=== PATIENT | female | born 1985 | race African-American/Black ===

== ENCOUNTER 2019-08-03 06:40 | Inpatient (IN) | payer OTHER ==
[~2019-08-03] VITALS: Ht 157.5 cm; Wt 85.9 kg
[2019-08-03] VITALS (42 sets, daily range): BP systolic 116–170; BP diastolic 67–104; PULSE 70–133; TEMP 97.4–98.8
--- NOTE | 2019-08-03 06:35 | NUR ---
Patient arrives ambulatory with spouse with complaints of possible SROM at 0315 this morning. Patient reports occasional contractions every 15-20 minutes, denies vaginal bleeding, and reports normal movement. Patient changes into gown, EFM explained and placed. VS obtained. 0645- Amniotrace performed and noted inconclusive. Moderate amount of mucousy discharge noted on exam. SVE 3-4/80/-1. Second Amniotrace performed off of exam glove, also inconclusive. Patient repositioned WL and updated on plan of care. 0650- Dr. Zavala notified. Reviewed patient history, presenting complaint and assessment. Notified of inconclusive Amniotrace results x2, SVE, FHR strip and contraction pattern. Prosper noting frequent contractions and patient states they are more uncomfortable and frequent than at home. GBS positive status. Orders to monitor for 20 minute strip then allow patient to ambulate with pad on. Reswab pad when able and update physician.
[2019-08-03] MEDS ORDERED: PRENATAL (07:25)
[2019-08-03] MEDS ORDERED: OSCAL 500 TAB500 MG PO (07:25)
[2019-08-03] MEDS ORDERED: TYLENOL 325MG325 MG PO (07:25)
--- NOTE | 2019-08-03 07:25 | NUR ---
Patient taken off EFM to ambulate in hallway with peripad on per orders.
--- NOTE | 2019-08-03 07:46 | NUR ---
Patient back on EFM after ambulating in hallway. Breathing through contractions and reports they are much stronger. Amniotrace completed again, inconclusive. SVE /0 with vertex well applied to cervix. Small gush of fluid noted with exam. 0750- See physician notification. Patient updated on admit status. 0815- IV started, labs obtained. FRANCIE and Miguel infusing, see EMAR. Consents explained and signed. Patient denies questions.
--- NOTE | 2019-08-03 08:20 | NUR ---
Difficulty tracing contractions via toco monitor. [place] cord switched out, RN at bedside palpating abdomen. Contractions noted every 3.5-4 minutes apart with good resting tone. 0850- New toco monitor applied, tracing well.
[2019-08-03 08:44] LABS: COLLECTION METHOD CLEAN CATCH
[2019-08-03 08:55] LABS: BASO % 0.1 % (0.0-2.0); EOS % 0.3 % (0-4.0); GRAN # 7.1 (1.4-6.5); GRAN % 78.7 % (42.2-75.2); HEMATOCRIT 43.3 % (37.0-47.0); HEMOGLOBIN 14.4 g/dl (12.5-16.0); LYMPH # 1.3 (1.2-3.4); MEAN CELL VOLUME 91 fl (80.0-100.0); MEAN CORPUSCULAR HEMOGLOBIN 30 pg (27.0-31.0); MEAN CORPUSCULAR HGB CONC 33 g/dl (33.0-37.0); MEAN PLATELET VOLUME 9.8 fl (7.4-10.4); MONO # 0.6 (0.1-0.6); MONO % 6.6 % (1.7-9.3); PLATELET COUNT 198 K/mm3 (130-400); RED BLOOD COUNT 4.74 M/mm3 (4.10-5.30); REDCELL DISTRIBUTION WIDTH-CV 13.3 % (11.5-14.5)
[2019-08-03 08:57] LABS: MUCOUS Present /lpf; PH 7 (5-8); SQUAMOUS EPITHELIAL 0-2 /hpf; URINE APPEARANCE Clear; URINE BACTERIA None Seen /hpf; URINE BILIRUBIN Negative (NEGATIVE); URINE BLOOD Negative (NEGATIVE); URINE COLOR Yellow; URINE GLUCOSE Negative (NEGATIVE); URINE KETONE Negative (NEGATIVE); URINE LEUKOCYTE ESTERASE Negative (NEGATIVE); URINE NITRATE Negative (NEGATIVE); URINE PROTEIN(semi-quant) Negative (NEGATIVE); URINE RBC 0-2 /hpf; URINE UROBILINOGEN Negative (NEGATIVE); URINE WBC 0-2 /hpf
[2019-08-03 09:01] LABS: ALBUMIN 4.2 gm/dL (3.5-5.0); BILIRUBIN,TOTAL 0.3 mg/dL (0.0-1.0); CALCIUM 9.7 mg/dL (8.4-10.2); CREATININE, serum 0.67 (0.52-1.25); POTASSIUM 4.1 mmol/L (3.4-5.0); TOTAL PROTEIN 8.2 gm/dL (6.4-8.2)
--- NOTE | 2019-08-03 10:43 | NUR ---
Dr. Zavala on unit, reviews FHR strip and updated on patient.
--- NOTE | 2019-08-03 11:05 | NUR ---
at bedside, reviews FHR strip. SVE per provider . Orders to begin Pitocin augmenation to increase frequency of contractions. Pitocin administration reviewed with patient, patient agrees and denies questions. 1110- Pitocin started 2 mU per protocol and order. Patient comfortable with epidural.
--- NOTE | 2019-08-03 12:30 | NUR ---
1230- FHR noted at 105 bpm. Patient currently in LL position, LR bolus infusing. 1235- Pitocin discontinued at this time. FHr remains in 95-105 bpm range. Oxygen via simple mask at 10L. Patient repsitioned RL, then back to LL. 1245- SVE 9100/0. 1248- Dr. Zavala notified and requested to view strip from office. Updated on SVE. Physician reviews strip, 105 bpm baseline determined. Orders to continue monitoring patient at this time and update when SVE is 10cm. Patient updated on plan of care. Comfortable with epidural.
--- NOTE | 2019-08-03 13:30 | NUR ---
SVE AL/0. Patient repositioned sitting upright in bed to promote descent. Comfortable with epidural.
--- NOTE | 2019-08-03 15:20 | NUR ---
1520- SVE 1. Dr. Zavala notified, see physician notification. Carranza catheter removed prior to pushing. Patient coached on pushing and reports urge to push with contractions. 1537- Patient begins pushing with contractions with RN at bedside.
--- NOTE | 2019-08-03 17:30 | NUR ---
Dr. Zavala at bedside. Reviews FHR strip and pushing efforts. Orders to start Pitocin at 2 mU. Patient continues pushing with contractions with physician at bedside.
--- NOTE | 2019-08-03 20:30 | NUR ---
IV to INT. Epidural catheter dc'd. Up to bathroom with steady gait. Voids good amount, performs own pericare after instruction, clean gown on. Ambulates to room with steady gait.
[2019-08-04] VITALS: BP 126/73; PULSE 93; TEMP 98.3
[2019-08-04 04:00] VITALS: BP 131/80; PULSE 88; TEMP 98.7
[2019-08-04 08:31] VITALS: BP 140/79; PULSE 71; TEMP 98.5
--- NOTE | 2019-08-04 09:09 | NUR ---
Initial visit attempt; Physician and nurse with patient. Powder Truck Driver left card of congratulations for the of her son and information regarding the availability of spiritual care at [facility].
[2019-08-04 12:52] VITALS: BP 138/84; PULSE 83; TEMP 97.9
[2019-08-04 16:49] VITALS: BP 132/82; PULSE 74; TEMP 98.2
[2019-08-04 21:19] VITALS: BP 137/90; PULSE 77; TEMP 98.1
[2019-08-05 09:30] VITALS: BP 128/85; PULSE 83; TEMP 97.6
[2019-08-05] MEDS ORDERED: IBU800 M1 PO (09:30)
== END 2019-08-05 15:40 | disposition home or self-care (01) | DRG 807 ==
LOC: LDRO 06:40 → LDR 08:54 → OB 08:54
PROVIDERS: Student in an Organized Health Care Education/Training Program; ADMIT Obstetrics & Gynecology
PROC: 10E0XZZ Delivery of Products of Conception, External Approach (ICD-10-PCS; principal; 2019-08-03)
PROC: 0KQM0ZZ Repair Perineum Muscle, Open Approach (ICD-10-PCS; 2019-08-03)
DX: O99.824 Streptococcus B carrier state complicating childbirth (principal); Z37.0 Single live birth; O99.344 Other mental disorders complicating childbirth; Z3A.40 40 weeks gestation of pregnancy; O48.0 Post-term pregnancy; O99.354 Diseases of the nervous system complicating childbirth; G43.909 Migraine, unspecified, not intractable, without status migrainosus; F41.9 Anxiety disorder, unspecified; F32.9 Major depressive disorder, single episode, unspecified; O69.89X0 Labor and delivery complicated by other cord complications, not applicable or unspecified; O70.1 Second degree perineal laceration during delivery; Z23 Encounter for immunization
CPT/HCPCS: J2540; J2590; J7120

== ENCOUNTER → 2019-08-10 | Outpatient (CLI) | payer OTHER ==
[~2019-08-10] MED LIST: IBU800 M1 PO; OSCAL 500 TAB500 MG PO; PRENATAL; TYLENOL 325MG325 MG PO
--- NOTE | 2019-08-10 13:31 | NUR ---
Pt, Ileana Chávez, presents to walk in clinic with one week old baby boy, Vasquez Chávez, and her mother to evaluate and weight. Vasquez was born on [birth year] and weighed 6#8.1oz (2950gms). He nursed with a nipple shield while in the hospital. Discharge weight was 6# 7oz (2915 gms). Pt reports Vasquez eats every 2-3 hours, for about 15 on first breast and 5 on second breast. He has qs voids and stools. Recently he has has a little spit up after feedings. Pt reports feeling her milk come in an expected time frame. Today Vasquez weighes 6#11.3oz (3042 gms). He latches to the left breast with the nipple shield. He needs stimulation but seems to nurse okay on the first breast, and is more active on the second breast. After nursing Vasquez has a total weight gain of 2.8oz (80 gms). Small amount of spit up noted as he was being put in the car seat. POC: Breastfeed ad jackeline. F/U: Tomorrow with Dr. Irizarry for well baby exam. Questions invited and answered.
== END ==
LOC: OLC 13:06
DX: Z39.1 Encounter for care and examination of lactating mother (principal); Z71.89 Other specified counseling

== ENCOUNTER 2021-10-09 09:00 | Inpatient (IN) | payer OTHER ==
[~2021-10-09] VITALS: Ht 5.1 cm; Wt 85.9 kg
[2021-10-10] VITALS (41 sets, daily range): BP systolic 123–184; BP diastolic 69–101; PULSE 63–101; TEMP 97.5–98.5
--- NOTE | 2021-10-10 06:15 | NUR ---
0615 - PATIENT AMBULATORY WITH SPOUSE TO LDR6. PATIENT REPORTS NO CONTRACTIONS, BLOODY SHOW, OR WATER BREAKING PRIOR TO ARRIVAL ON UNIT. PATIENT CHANGES INTO GOWN. PLAN OF CARE DISCUSSED. 0628 - PATIENT PLACED ON MONITOR. ASSESSMENTS AND CONSENTS COMPLETED WITH PATIENT. IV SITE STARTED, BLOOD OBTAINED AND TO LAB. LR INITIATED. 0647 - PLAN OF PITOCIN INDUCTION DISCUSSED AND PATIENT IS IN AGREEMENT WITH PLAN. PITOCIN STARTED AT 2MILIUNITS/HR. CARE ONGOING.
[2021-10-10 07:28] LABS: BASO % 0.3 % (0.0-2.0); EOS % 0.4 % (0.0-4.0); GRAN # 5.2 K/mm3 (1.4-6.5); GRAN % 73.8 % (42.2-75.2); HEMATOCRIT 39.2 % (37.0-47.0); HEMOGLOBIN 12.7 g/dl (12.5-16.0); LYMPH # 1.3 K/mm3 (1.2-3.4); LYMPH % 18.8 % (20.0-51.0); MEAN CELL VOLUME 93 fl (80.0-100.0); MEAN CORPUSCULAR HEMOGLOBIN 30 pg (27-31); MEAN CORPUSCULAR HGB CONC 32 g/dl (33.0-37.0); MEAN PLATELET VOLUME 10.3 fl (7.4-10.4); MONO # 0.5 K/mm3 (0.1-0.6); MONO % 6.3 % (1.7-9.3); PLATELET COUNT 201 K/mm3 (130-400); RED BLOOD COUNT 4.23 M/mm3 (4.10-5.30); REDCELL DISTRIBUTION WIDTH-CV 13.2 % (11.5-14.5)
--- NOTE | 2021-10-10 08:45 | NUR ---
0845 - PATIENT UP FOR BRP. VOIDED. 0850 - MD BENIGNO AT BEDSIDE. PLAN OF CARE DISCUSSED WITH PATIENT AND SPOUSE. SVE PERFORMED BY MD BENIGNO. . 0851 - MD BENIGNO PERFORMED AROM. CLEAR FLUID NOTED. CARE ONGOING.
--- NOTE | 2021-10-10 09:50 | NUR ---
0950 - B[place]O HILL TO BEDSIDE FOR EPIDURAL PLACEMENT. PLAN OF CARE DISCUSSED WITH PATIENT AND SPOUSE. 0992 - TEST DOSE GIVEN BY PHARMACY ANALYST. 1000 - PATIENT REPOSITIONED IN BED. CARE ONGOING.
--- NOTE | 2021-10-10 10:00 | NUR ---
EFM AND TOCO TRACING INDESCERNIBLE DUE TO PATIENT POSITIONING FOR EPIDURAL PLACEMENT. EFM AND TOCO ADJUSTED AFTER EDIPURAL PLACMENT COMPLETE. CARE ONGOING.
--- NOTE | 2021-10-10 13:05 | NUR ---
1305 - PATIENT REPOSITIONED AND SVE PERFORMED BY RN. /2. 1311 - ROLES,MD NOTIFIED THAT PATIENT IS COMPLETE. PLAN OF CARE DISCUSSED WITH PATIENT AND SPOUSE. CARE ONGOING.
--- NOTE | 2021-10-10 13:20 | NUR ---
1320 - PATIENT PREPPED FOR VAGINAL DELIVERY 1325 - ROLES, AT BEDSIDE. 1329 - PATIENT BEGINS PUSHING WITH CONTRACTIONS. 1330 - SPONTANEOUS VAGINAL DELIVERY OF VIABLE FEMALE. HEAD FOLLOWED BY BODY. INFANT TO PATIENT'S ABDOMEN AND JOSE EDUARDO BRORERO ASSUMES CARE OF INFANT. CORD CLAMPED X2 AND CUT BY MD. CORD BLOOD OBTAINED. 1333 - SPONTANEOUS DELIVERY OF PLACENTA. PITOCIN BOLUS STARTED AT THIS TIME PER PROTOCOL. FUNDAL MASSAGE DONE. FIRM, BLEEDING WNL. MD BEGINS REPAIRING LACERATION. 1335 - FUNDAL MASSAGE DONE. ICE PACK KATE PAD APPLIED TO PERINEUM. PATIENT REPOSITIONED. PLAN OF CARE DISCUSSED.
[2021-10-11 03:30] VITALS: BP 132/84; PULSE 84; TEMP 97.7
[2021-10-11 08:09] VITALS: BP 134/78; PULSE 78; TEMP 98.4
[2021-10-11] MEDS ORDERED: IBU800 M1 PO (08:53)
--- NOTE | 2021-10-11 10:23 | NUR ---
Initial visit; Parents thanked Wood Inspector for offering congratulations and God's blessings for the of their daughter. Wood Inspector thanked them for choosing [facility].
== END 2021-10-11 15:30 | disposition home or self-care (01) | DRG 807 ==
LOC: LDR 10-10 06:13 → OB 10-10 06:13 → LDR 10-10 09:00 → OB 10-10 16:00 → LDR 10-10 18:29 → OB 10-11 15:30
PROVIDERS: ADMIT Obstetrics & Gynecology
PROC: 10E0XZZ Delivery of Products of Conception, External Approach (ICD-10-PCS; principal; 2021-10-10)
PROC: 0KQM0ZZ Repair Perineum Muscle, Open Approach (ICD-10-PCS; 2021-10-10)
PROC: 10907ZC Drainage of Amniotic Fluid, Therapeutic from Products of Conception, Via Natural or Artificial Opening (ICD-10-PCS; 2021-10-10)
PROC: 3E033VJ Introduction of Other Hormone into Peripheral Vein, Percutaneous Approach (ICD-10-PCS; 2021-10-10)
DX: O99.344 Other mental disorders complicating childbirth (principal); Z37.0 Single live birth; F32.A Depression, unspecified; O70.1 Second degree perineal laceration during delivery; Z3A.39 39 weeks gestation of pregnancy; Z23 Encounter for immunization
CPT/HCPCS: J2590; J7120

== ENCOUNTER → 2022-04-19 | Outpatient (CLI) | payer OTHER ==
[~2022-04-19] MED LIST changes: +CEPHALEXIN500 M1 PO; +COLACE 100100 MG/CAP PO; +PROCARDIA XL 6060 MG PO; +ZOLOFT 50MG50 MG PO
== END ==
LOC: COL.RAD 11:27
DX: N13.30 Unspecified hydronephrosis (principal); Q62.31 Congenital ureterocele, orthotopic
CPT/HCPCS: Q9967